=== PATIENT | female | born 1950 | race Caucasian/White ===

== ENCOUNTER 2016-03-09 08:40 | Emergency (ER) | payer MEDICARE ==
[~2016-03-09] VITALS: Ht 165.1 cm; Wt 68.9 kg
--- NOTE | 2016-03-09 09:35 | PHYS DOC ---
Past Medical History Past Medical History: Pneumonia Past Surgical History: Other Additional Past Surgical Histo: OVARIAN CYST Additional Information: 1 TO 1.5 PPD Alcohol Use: None Drug Use: None Adult General Chief Complaint Chief Complaint: DIARRHEA HPI HPI Patient is a 65 year old female who presents with complaint of diarrhea for the past 10 days. Patient states that she initially had trouble with a right ear infection and was prescribed eardrops which did not help. The patient states that she was placed on Cefdinir for treatment of her ear infection. Patient states that 2 days after that she started developing symptoms of diarrhea. Patient states that they have progressively worsened over the past few days. Patient states that she has associated nausea but no vomiting and has been having cramping abdominal pain before bowel movements. Patient does not have abdominal pain at rest currently. The patient states that she has had mild generalized weakness and has been having difficulty doing her job because of symptoms. Patient also complains of dysuria and vaginal itching but denies any discharge. Review of Systems Review of Systems Constitutional: Denies fever or chills [] Eyes: Denies change in visual acuity, redness, or eye pain [] HENT: Hearing loss in right ear, Denies nasal congestion or sore throat [] Respiratory: Denies cough or shortness of breath [] Cardiovascular: No additional information not addressed in HPI [] GI: Nausea, diarrhea, cramping abdominal pain, denies vomiting or bloody stools [] : Dysuria, vaginal itching [] Musculoskeletal: Denies back pain or joint pain [] Integument: Denies rash or skin lesions [] Neurologic: Denies headache, focal weakness or sensory changes [] Endocrine: Denies polyuria or polydipsia [] Allergies Allergies Allergies Coded Allergies Type Severity Reaction Last Updated Verified Penicillins Allergy Unknown 03/09/16 Yes Physical Exam Physical Exam Constitutional: Alert, afebrile, no acute distress. [] HENT: Normocephalic, atraumatic, right TM status post rupture with scab formation, left TM normal, oropharynx moist, no oral exudates, nose normal. [] Eyes: PERRLA, EOMI, conjunctiva normal, no discharge. [] Neck: Normal range of motion, no tenderness, supple, no stridor. [] Cardiovascular:Heart rate regular rhythm, no murmur [] Lungs & Thorax: Bilateral breath sounds clear to auscultation [] Abdomen: Bowel sounds normal, soft, no tenderness, no masses, no pulsatile masses. [] Skin: Warm, dry, no erythema, no rash. [] Back: No tenderness, no CVA tenderness. [] Extremities: No tenderness, no cyanosis, no clubbing, ROM intact, no edema. [] Neurologic: Alert and oriented X 3, normal motor function, normal sensory function, no focal deficits noted. [] Current Patient Data Vital Signs Vital Signs Date Time Temp Pulse Resp B/P Pulse Ox O2 Delivery O2 Flow Rate FiO2 03/09/16 11:23 56 19 150/86 97 Room Air 03/09/16 08:59 98.4 98.4 Lab Values Laboratory Tests Test 03/09/16 09:50 Urine Collection Type Void Urine Color Yellow Urine Clarity Clear Urine pH 6.5 Urine Specific [place] <=1.005 Urine Protein Negativemg/dL (NEG-TRACE) Urine Glucose (UA) Negativemg/dL (NEG) Urine Ketones (Stick) Negativemg/dL (NEG) Urine Blood Trace (NEG) Urine Nitrite Negative (NEG) Urine Bilirubin Negative (NEG) Urine Urobilinogen Dipstick 0.2mg/dL (0.2 mg/dL) Urine Leukocyte Esterase Trace (NEG) Urine RBC Occ/HPF (0-2) Urine WBC 1-4/HPF (0-4) Urine Squamous Epithelial Cells Few/LPF Urine Bacteria Few/HPF (0-FEW) EKG EKG Not performed [] Radiology/Procedures Radiology/Procedures Not performed [] Course & Med Decision Making Course & Med Decision Making Pertinent Labs and Imaging studies reviewed. (See chart for details) Patient's metabolic panel and UA were unremarkable. Due to history of recent antibiotic use, the patient may have infectious diarrhea due to loss of normal brianna. The patient will be started on Flagyl therapy as she was given Cipro by her primary doctor and stated that she did not want to take this for fear of possible tendinopathy and injury. Advised the patient follow-up with her primary doctor in the next 3 days and return to emergency department for any worsening symptoms. Patient voiced understanding and in agreement with treatment plan. Dragon Disclaimer Dragon Disclaimer This electronic medical record was generated, in whole or in part, using a voice recognition dictation system. Departure Departure Impression: Primary Impression: Diarrhea Disposition: HOME, SELF-CARE Condition: STABLE Referrals: NO PCP (PCP) Patient Instructions: Diarrhea Additional Instructions: You'll be started on Flagyl for treatment of your diarrhea. Follow-up with your primary doctor in 3 days. Return to the emergency department for any worsening symptoms. Scripts Metronidazole (Flagyl)500 Mg [id number] Mg PO TID #30 TAB Prov:SANTAAN LOMBARDO MD 03/09/16 Ondansetron (Zofran Odt)4 Mg Tab.rapdis4 Mg PO Q8HRS PRN NAUSEA/VOMITING #15 TAB Prov:SANTANA LOMBARDO MD 03/09/16 Problem Qualifiers Primary Impression: Diarrhea Diarrhea type: presumed infectious Qualified Code: A09 - Infectious gastroenteritis and colitis, unspecified SANTANA LOMBARDO MD Mar 09, 2016 09:35
[2016-03-09 10:44] LABS: BILIRUBIN,URINE NEGATIVE (NEG); GLUCOSE,URINE NEGATIVE (NEG); NITRITE,URINE NEGATIVE (NEG); PH,URINE 6.5; PROTEIN,URINE NEGATIVE (NEG-TRACE); UROBILINOGEN,URINE 0.2 mg/dL (0.2 mg/dL)
[2016-03-09 10:55] LABS: BACTERIA,URINE FEW /HPF (0-FEW); RBC,URINE OCC /HPF (0-2); SQUAMOUS EPITHELIAL CELL,UR FEW /LPF
[2016-03-09] MEDS ORDERED: ONDA4TAB10 PO (11:12)
[2016-03-09] MEDS ORDERED: METR500T PO (11:12)
[2016-03-09 11:23] VITALS: BP 150/86
== END 2016-03-09 11:39 | disposition home or self-care (01) ==
LOC: ER 08:40
DX: A09 Infectious gastroenteritis and colitis, unspecified (principal); L29.2 Pruritus vulvae; R30.0 Dysuria; F17.200 Nicotine dependence, unspecified, uncomplicated; Z88.0 Allergy status to penicillin; Z87.01 Personal history of pneumonia (recurrent)
CPT/HCPCS: 81001; 87086; 99284

== ENCOUNTER → 2017-04-02 | Outpatient (CLI) | payer MEDICARE | END | disposition home or self-care (01) | LOC: KCIC 09:13 | DX: A08.4 Viral intestinal infection, unspecified (principal) | CPT/HCPCS: 74018 ==

== ENCOUNTER → 2018-04-15 | Outpatient (CLI) | payer MEDICARE ==
[~2018-04-15] MED LIST: METR500T PO; ONDA4TAB10 PO
--- NOTE | 2018-04-15 10:40 | KCIC ---
EXAM: Dual energy x-ray absorptiometry (DEXA). HISTORY: Postmenopausal female presents for osteoporosis screening. COMPARISON: None. TECHNIQUE: Dual energy x-ray absorptiometry of the lumbar spine and left hip was performed. Calculation of bone mineral density based on standard deviations above or below the expected young adult normal value (T-score) was completed. FINDINGS: The average bone mineral density in the 1st through 4th lumbar vertebrae is 0.892 g/cmxcm, corresponding with a T-score of -1.4. The average total bone mineral density in the left hip is 0.650 g/cmxcm, corresponding with a T-score of -2.4. IMPRESSION: Osteopenia measured at the lumbar spine and left hip. Note: Definitions established by the World Health Organization: 1. Normal: T-score is -1.0 or above. 2. Osteopenia: T-score is between -1.0 and -2.5 . 3. Osteoporosis: T-score is -2.5 or below. Electronically signed by: Dasha Keyes MD (04/15/2018 10:37 AM) [facility]
--- NOTE | 2018-04-15 16:57 | KCIC ---
History: Screening. Bilateral digital CC and MLO views were obtained with mammography and tomosynthesis. Computer aided detection was utilized with iCAD Second Look 7.2-H. Previous: June 05, 2016. The breast tissue is heterogeneously dense, which could obscure detection of small masses (Level 3 density). There are no suspicious masses, suspicious microcalcifications or areas of architectural distortion. Small subcentimeter left outer breast intramammary lymph node on the CC tomosynthesis images. A few benign calcifications are present bilaterally. IMPRESSION: Negative mammogram. Patient information was entered into the [employer] reminder system with a target due date for the next screening mammogram. Routine annual screening mammogram in one year advised. BI-RADS Category 2: Benign. Your mammogram demonstrates that you have dense breast tissue, which could hide abnormalities, and if you have other risk factors for breast cancer that have been identified, you might benefit from supplemental screening tests that may be suggested by your ordering physician. Dense breast tissue, in and of itself, is a relatively common condition. This information is not provided to cause undue concern, but rather to raise your awareness and to promote discussion with your physician regarding the presence of other risk factors, in addition to dense breast tissue. A report of your mammography results will be sent to you and your physician. You should contact your physician if you have any questions or concerns regarding this report. A mammogram does not have 100% sensitivity and therefore a negative imaging study should not delay further work up of a suspicious abnormality. "Our facility is accredited by the [employer] Mammography Program." Electronically signed by: Boris Wu MD (04/15/2018 4:53 PM) [facility]
== END | disposition home or self-care (01) ==
LOC: KCIC DEXA 09:47
PROVIDERS: ATTEND Family Medicine
DX: Z12.31 Encounter for screening mammogram for malignant neoplasm of breast (principal); Z13.820 Encounter for screening for osteoporosis; M85.89 Other specified disorders of bone density and structure, multiple sites
CPT/HCPCS: 77063; 77067; 77080

== ENCOUNTER → 2019-12-18 | Outpatient (CLI) | payer MEDICARE ==
--- NOTE | 2019-12-18 14:54 | KCIC ---
EXAM: Lower extremity arterial Doppler sonogram with ankle-brachial indices (KANDY). HISTORY: Cold feet. TECHNIQUE: Doppler sonographic evaluation of the lower extremities was performed and pressure readings were assessed. FINDINGS: Right brachial pressure: 134 mmHg Left brachial pressure: 130 mmHg Resting: Right ankle pressure (dorsalis pedis artery): 127 mmHg Right ankle pressure (posterior tibial artery): 135 mmHg Right KANDY: 1.01 Left ankle pressure (dorsalis pedis artery): 130 mmHg Left ankle pressure (posterior tibial artery): 136 mmHg Left KANDY: 0.97 IMPRESSION: Normal bilateral ankle-brachial indices. Electronically signed by: Dasha Keyes MD (12/18/2019 2:50 PM) [id number]
--- NOTE | 2019-12-18 16:13 | KCIC ---
EXAM: Low dose CT lung cancer screening. HISTORY: Lung cancer screening. 37 pack year smoking history. TECHNIQUE: Computed tomographic images of the chest were obtained without contrast. *One or more of the following individualized dose reduction techniques were utilized for this examination: 1. Automated exposure control. 2. Adjustment of the mA and/or kV according to patient size. 3. Use of iterative reconstruction technique. COMPARISON: None. FINDINGS: The heart is normal in size. The aorta is normal in caliber. There is aortic and coronary artery atherosclerosis. There are calcified mediastinal and hilar granulomas. No pathologically enlarged lymph node is seen. There is no infiltrate, pleural effusion or pneumothorax. There is biapical pleural parenchymal scarring. There is a calcified granuloma with adjacent spiculated groundglass opacity within the superior segment of the right lower lobe. The imaging appearance favors pleural parenchymal scarring. The noncalcified groundglass spiculated lesion component measures approximately 7 mm. There are additional calcified granulomas within the medial right lower lobe. There is linear atelectasis or scarring within the lateral right lower lobe. There is a tiny 2 mm pleural-based nodule within the lateral right upper lobe likely due to adjacent pleural parenchymal scarring. There is a 1.3 cm cutaneous or subcutaneous nodule along the lateral right breast, the appearance of which favors a sebaceous cyst. There is no acute finding involving the upper abdomen. There is right adrenal gland thickening or a right adrenal adenoma measuring 1.7 cm. There are multiple splenic granulomas. There are degenerative changes throughout the spine. There is a bone island within T5. There is a minimal chronic superior endplate depression at T4 and T3. IMPRESSION: 1. No acute thoracic finding. 2. Calcified granulomas adjacent suspected lingular groundglass opacity within the superior segment of the right lower lobe. The main portion of the groundglass opacity measures approximately 7 mm and is likely due to scarring. Follow-up can be performed in 6 months to confirm stability in this high-risk patient. 3. Biapical pleural parenchymal scarring. 4. Right adrenal gland thickening or 1.7 cm benign right adrenal adenoma. Electronically signed by: Dasha Keyes MD (12/18/2019 4:10 PM) [id number]
== END ==
LOC: KCIC US 13:46
PROVIDERS: ATTEND Family Medicine
DX: Z12.2 Encounter for screening for malignant neoplasm of respiratory organs (principal); R20.9 Unspecified disturbances of skin sensation; R05 Cough; I25.10 Atherosclerotic heart disease of native coronary artery without angina pectoris; J98.4 Other disorders of lung; J84.10 Pulmonary fibrosis, unspecified; R91.1 Solitary pulmonary nodule; F17.210 Nicotine dependence, cigarettes, uncomplicated
CPT/HCPCS: 93922; G0297

== ENCOUNTER 2020-02-27 13:51 | Emergency (ER) | payer MEDICARE ==
[~2020-02-27] VITALS: Ht 165.1 cm; Wt 73.0 kg
[2020-02-27 14:39] LABS: BILIRUBIN,URINE NEGATIVE (NEG); CLARITY,URINE CLEAR; COLOR,URINE YELLOW; NITRITE,URINE NEGATIVE (NEG); PROTEIN,URINE NEGATIVE (NEG-TRACE); UROBILINOGEN,URINE 0.2 mg/dL (0.2 mg/dL)
[2020-02-27 14:50] VITALS: BP 159/72
[2020-02-27 14:50] LABS: RBC,URINE 0 /HPF (0-2); WBC,URINE OCC /HPF (0-4)
[2020-02-27 14:51] LABS: BACTERIA,URINE 0 /HPF (0-FEW)
[2020-02-27] MEDS ORDERED: METOCLOPRAMIDE HCL 10 MG/2 ML VIAL. IVP ONE (15:00)
[2020-02-27] MEDS ORDERED: IV NORMAL SALINE 1000ML BAG 1,000 ML IV SCH (15:00)
[2020-02-27] MEDS ORDERED: KETOROLAC 15 MG/ML VIAL. IVP ONE (15:00)
[2020-02-27] MEDS ORDERED: IV NORMAL SALINE 1000ML BAG 1,000 ML IV ONE (15:00)
--- NOTE | 2020-02-27 15:45 | RAD ---
PQRS Compliance Statement: One or more of the following individualized dose reduction techniques were utilized for this examinat ion: 1. Automated exposure control 2. Adjustment of the mA and/or kV according to patient size 3. Use of iterative reconstruction technique CT abdomen/pelvis without contrast 02/27/2020 2:55 PM INDICATION: Right flank pain. COMPARISON: None available TECHNIQUE: Multiple axial CT images of the abdomen and pelvis were obtained without intravenous contr ast. Coronal and sagittal reformats are provided. FINDINGS: There is subsegmental atelectasis of the right lung base. There is a 8 mm calcified granuloma at the medial right lung base. Heart size is within normal limits. Evaluation of solid abdominal viscera is limited by lack of intravenous contrast. There is an indeterminate hypoattenuating lesion in the infe rior right hepatic lobe measuring 9 mm. There is a cyst in the anterior inferior right hepatic lobe m easuring 14 mm. Calcifications within the spleen likely represent sequela prior granulomatous exposur e. Left adrenal gland is normal in appearance. There is a right adrenal nodule with attenuation measu ring -6 Hounsfield units suggestive of a lipid rich adrenal adenoma measuring 1.3 x 1.2 cm. Limited e valuation the pancreas. Gallbladder is present without adjacent inflammation. Abdominal aorta is norm al in course and caliber with moderate to advanced calcified atheromatous plaque. There are no pathol ogically enlarged lymph nodes in the abdomen and pelvis. There is no free fluid or free intraperitone al air. The kidneys are relatively symmetric in appearance. There is no suspicious renal mass within the limi tations of a noncontrast examination. There is no hydronephrosis. There are no calculi within the kid neys, ureters or urinary bladder. Urinary bladder is within normal limits given degree of distention. Uterus and adnexa are normal by CT. The appendix is not well evaluated on this examination due to lack of oral contrast. No pericecal inf lammatory changes are identified. Terminal ileum appears normal in caliber. No suspicious osseous abn ormality is identified. IMPRESSION: No evidence for obstructive uropathy. Appendix is not well evaluated due to the lack of oral contrast. There is persistent clinical concern , further evaluation with CT pelvis with oral contrast could be of benefit. There is a right adrenal lipid rich adenoma measuring 1.2 x 1.2 cm. Indeterminate 9 mm hypoattenuating lesion in the inferior right hepatic lobe. This may be further pau racterized with abdominal MRI with and without contrast. Electronically signed by: Gretchen Gordillo MD (02/27/2020 3:43 PM) [id number]
[2020-02-27 16:04] LABS: BASO # 0.1 x10^3/uL (0.0-0.2); BASO % 1 % (0-3); EOS # 0.1 x10^3/uL (0.0-0.7); EOS % 1 % (0-3); HEMATOCRIT 41.7 % (36.0-47.0); HEMOGLOBIN 14.3 g/dL (12.0-15.5); LYMPH # 2.2 x10^3/uL (1.0-4.8); LYMPH % 31 % (24-48); MEAN CORPUSCULAR HEMOGLOBIN 33 pg (25-35); MEAN CORPUSCULAR HGB CONC 34 g/dL (31-37); MEAN CORPUSCULAR VOLUME 96 fL (79-100); MONO # 0.5 x10^3/uL (0.0-1.1); MONO % 6 % (0-9); NEUT # 4.4 x10^3/uL (1.8-7.7); NEUT % 61 % (31-73); PLATELET COUNT 180 x10^3/uL (140-400); RED BLOOD COUNT 4.32 x10^6/uL (3.50-5.40); RED CELL DISTRIBUTION WIDTH 12.6 % (11.5-14.5); WHITE BLOOD COUNT 7.3 x10^3/uL (4.0-11.0)
[2020-02-27 16:17] LABS: CALCIUM 10.4 mg/dL (8.5-10.1); CREATININE 0.8 mg/dL (0.6-1.0); GFR 70.9; POTASSIUM 4.2 mmol/L (3.5-5.1)
[2020-02-27 16:23] LABS: ALBUMIN 3.9 g/dL (3.4-5.0); ALBUMIN/GLOBULIN RATIO 1.2 (1.0-1.7); TOTAL BILIRUBIN 0.4 mg/dL (0.2-1.0); TOTAL PROTEIN 7.2 g/dL (6.4-8.2)
--- NOTE | 2020-02-27 16:48 | PHYS DOC ---
Past Medical History Past Medical History: Pneumonia, Other Additional Past Medical Histor: C.diff Past Surgical History: Other Additional Past Surgical Histo: OVARIAN CYST/ Right salping/oopherectomy 1970 Smoking Status: Current Every Day Smoker Alcohol Use: None Drug Use: None General Adult EDM: Chief Complaint: FLANK PAIN HPI: HPI: Patient is a 69 year old female who presents via private vehicle for chief complaint of nausea and R sided flank pain. She reports that over the last month she has noticed increased belching and bloating after meals. She usually takes tums for this discomfort but they have stopped alleviating her symptoms in the last 1-2 weeks. Her discomfort has progressed to postprandial nausea without associated vomiting. She has associated pale colored stools. Last night she began to experience a 2/10 dull, nonradiating pain in the lower right flank that is only present when walking or standing but is relieved by position change to sitting or laying down. She saw her PCP on Sunday for related complaint of postprandial nausea and was started on pantoprazole, and given a referral to GI. She has a history of c.diff infection in 2018. She denies vomiting, diarrhea, constipation. She endorses urinary frequency and urgency, but denies dysuria, Review of Systems: Review of Systems: Constitutional: Denies fever or chills Eyes: vision changes, eye pain HENT: Denies nasal congestion or sore throat Respiratory: Denies cough or shortness of breath Cardiovascular: Denies chest pain or palpitations GI: Admits abdominal pain, nausea, pale colored stool, denies vomiting, blood in stool : Denies dysuria or hematuria. admits urinary urgency, frequency Musculoskeletal: Admits positional r lower back pain. admits joint pain associated with cold temperatures, recent dx raynauds Integument: Denies rash or skin lesions Neurologic: Denies headache, focal weakness or sensory changes Complete systems were reviewed and found to be within normal limits, except as documented in this note. Current Medications: Current Medications Medications (Trade) Dose Ordered Sig/Sabine Start Time Stop Time Status Last Admin Dose Admin Ketorolac Tromethamine (Toradol 15mg Vial) 10 mg 1X ONCE 02/27/20 15:00 02/27/20 15:01 DC Metoclopramide HCl (Reglan Vial) 10 mg 1X ONCE 02/27/20 15:00 02/27/20 15:01 DC Sodium Chloride 1,000 ml @ 1,000 mls/hr 1X ONCE 02/27/20 15:00 02/27/20 15:59 DC Allergies: Allergies: Allergies Coded Allergies Type Severity Reaction Last Updated Verified Penicillins Allergy Unknown 03/09/16 Yes Physical Exam: PE: Constitutional: Well developed, well nourished, no acute distress, non-toxic susan earance HENT: Normocephalic, atraumatic Eyes: PERRL, EOMI, conjunctiva normal, no discharge Neck: Normal range of motion, no tenderness, supple Lungs & Thorax: No respiratory distress, equal chest rise and fall Abdomen: Tender to deep palpation in RUQ and epigastric region. bowel sounds present, soft, nondistended Skin: Warm, dry, no erythema, no rash Back: Mild tenderness in R lower flank, no CVA tenderness Extremities: No tenderness, ROM intact, no edema, 2+ pedal pulse b/l Neurologic: Alert and oriented X 3, normal motor function, normal sensory function, no focal deficits noted Psychologic: Affect normal, judgment normal Current Patient Data: Labs: Laboratory Tests Test 02/27/20 14:30 02/27/20 15:50 Urine Collection Type Unknown Urine Color Yellow Urine Clarity Clear Urine pH 8.0 (<5.0-8.0) Urine Specific [place] 1.010 (1.000-1.030) Urine Protein Negative mg/dL (NEG-TRACE) Urine Glucose (UA) Negative mg/dL (NEG) Urine Ketones (Stick) Negative mg/dL (NEG) Urine Blood Negative (NEG) Urine Nitrite Negative (NEG) Urine Bilirubin Negative (NEG) Urine Urobilinogen Dipstick 0.2 mg/dL (0.2 mg/dL) Urine Leukocyte Esterase Small (NEG) Urine RBC 0 /HPF (0-2) Urine WBC Occ /HPF (0-4) Urine Squamous Epithelial Cells Mod /LPF Urine Bacteria 0 /HPF (0-FEW) White Blood Count 7.3 x10^3/uL (4.0-11.0) Red Blood Count 4.32 x10^6/uL (3.50-5.40) Hemoglobin 14.3 g/dL (12.0-15.5) Hematocrit 41.7 % (36.0-47.0) Mean Corpuscular Volume 96 fL (79-100) Mean Corpuscular Hemoglobin 33 pg (25-35) Mean Corpuscular Hemoglobin Concent 34 g/dL (31-37) Red Cell Distribution Width 12.6 % (11.5-14.5) Platelet Count 180 x10^3/uL (140-400) Neutrophils (%) (Auto) 61 % (31-73) Lymphocytes (%) (Auto) 31 % (24-48) Monocytes (%) (Auto) 6 % (0-9) Eosinophils (%) (Auto) 1 % (0-3) Basophils (%) (Auto) 1 % (0-3) Neutrophils # (Auto) 4.4 x10^3/uL (1.8-7.7) Lymphocytes # (Auto) 2.2 x10^3/uL (1.0-4.8) Monocytes # (Auto) 0.5 x10^3/uL (0.0-1.1) Eosinophils # (Auto) 0.1 x10^3/uL (0.0-0.7) Basophils # (Auto) 0.1 x10^3/uL (0.0-0.2) Laboratory Tests 02/27/20 15:50 Vital Signs: Vital Signs Date Time Temp Pulse Resp B/P (MAP) Pulse Ox O2 Delivery O2 Flow Rate FiO2 02/27/20 14:50 50 18 159/72 (101) 97 Room Air 02/27/20 14:13 98.2 98.2 EKG: EKG: [] Radiology/Procedures: Radiology/Procedures: PROCEDURE: CT ABDOMEN PELVIS WO CONTRAST PQRS Compliance Statement: One or more of the following individualized dose reduction techniques were utilized for this examination: 1. Automated exposure control 2. Adjustment of the mA and/or kV according to patient size 3. Use of iterative reconstruction technique CT abdomen/pelvis without contrast 02/27/2020 2:55 PM INDICATION: Right flank pain. COMPARISON: None available TECHNIQUE: Multiple axial CT images of the abdomen and pelvis were obtained without intravenous contrast. Coronal and sagittal reformats are provided. FINDINGS: There is subsegmental atelectasis of the right lung base. There is a 8 mm calcified granuloma at the medial right lung base. Heart size is within normal limits. Evaluation of solid abdominal viscera is limited by lack of intravenous contrast. There is an indeterminate hypoattenuating lesion in the inferior right hepatic lobe measuring 9 mm. There is a cyst in the anterior inferior right hepatic lobe measuring 14 mm. Calcifications within the spleen likely represent sequela prior granulomatous exposure. Left adrenal gland is normal in appearance. There is a right adrenal nodule with attenuation measuring -6 Hounsfield units suggestive of a lipid rich adrenal adenoma measuring 1.3 x 1.2 cm. Limited evaluation the pancreas. Gallbladder is present without adjacent inflammation. Abdominal aorta is normal in course and caliber with moderate to advanced calcified atheromatous plaque. There are no pathologically enlarged lymph nodes in the abdomen and pelvis. There is no free fluid or free intraperitoneal air. The kidneys are relatively symmetric in appearance. There is no suspicious renal mass within the limitations of a noncontrast examination. There is no hydronephrosis. There are no calculi within the kidneys, ureters or urinary bladder. Urinary bladder is within normal limits given degree of distention. Uterus and adnexa are normal by CT. The appendix is not well evaluated on this examination due to lack of oral contrast. No pericecal inflammatory changes are identified. Terminal ileum appears normal in caliber. No suspicious osseous abnormality is identified. IMPRESSION: No evidence for obstructive uropathy. Appendix is not well evaluated due to the lack of oral contrast. There is persistent clinical concern, further evaluation with CT pelvis with oral contrast could be of benefit. There is a right adrenal lipid rich adenoma measuring 1.2 x 1.2 cm. Indeterminate 9 mm hypoattenuating lesion in the inferior right hepatic lobe. This may be further characterized with abdominal MRI with and without contrast. Electronically signed by: Gretchen Gordillo MD (02/27/2020 3:43 PM) [id number] Course & Med Decision Making: Course & Med Decision Making Pertinent Labs and Imaging studies reviewed. (See chart for details) This 69 yof presents with complaint of postprandial nausea and R flank pain. Her flank pain is 2/10 positional and only present when walking, Physical exam negative for CVA tenderness. Urinalysis and labs ordered to evaluate for infection, electrolyte abnormalities. CT ordered due to concern for renal pathology reviewed as no evidence for obstructive uropathy. There is an incidental finding of right adrenal lipid rich adenoma measuring 1.2 x 1.2 cm and indeterminate 9 mm hypoattenuating lesion in the inferior right hepatic lobe. Recommend follow up with GI, referral already in place from PCP which she saw on Sunday02/24/2020 due to similar complaints. She has a history of C. diffiicile infection in 2018 but currently denies diarrhea. She was started on pantoprazole and referred to GI by her PCP. Metoclopramide and ketoralac given for symptomatic relief while in ED. Patient stable for discharge with outpatient follow-up with PCP. Discussed findings and plan with patient, who acknowledges understanding and agreement. Patience Disclaimer: Patience Disclaimer: This electronic medical record was generated, in whole or in part, using a voice recognition dictation system. Departure Departure Impression: Primary Impression: Abdominal pain Qualified Codes: R10.11 - Right upper quadrant pain Additional Impressions: Back pain Qualified Codes: M54.6 - Pain in thoracic spine Lung granuloma Liver lesion Disposition: HOME SELF CARE/HOMELESS Condition: STABLE Referrals: EMEKA RICH MD (PCP) Patient Instructions: Abdominal Pain (Nonspecific), Back Pain, Adult, [id number], Incidental Abnormal Radiological Finding Additional Instructions: Give copy of your CT results to your doctors for future re-evaluation. Scripts Ondansetron (ONDANSETRON ODT) 4 Mg Tab.rapdis 1 TAB PO PRN Q6-8HRS PRN for NAUSEA, #16 TAB Prov: NOEMY FIGUEROA DO 02/27/20 NOEMY FIGUEROA DO Feb 27, 2020 16:48
[2020-02-27] MEDS ORDERED: ONDA4TAB12 PO (17:11)
== END 2020-02-27 17:51 | disposition home or self-care (01) ==
LOC: ER 13:51
DX: R10.11 Right upper quadrant pain (principal); M54.6 Pain in thoracic spine; J84.10 Pulmonary fibrosis, unspecified; K76.9 Liver disease, unspecified; F17.200 Nicotine dependence, unspecified, uncomplicated; Z88.0 Allergy status to penicillin
CPT/HCPCS: 36415; 74176; 80053; 81001; 83605; 83690; 83735; 85025; 87086; 96361; 96374; 96375; 99284; J1885; J2765; J7030

== ENCOUNTER → 2021-03-07 | Outpatient (CLI) | payer MEDICARE ==
[~2021-03-07] MED LIST changes: +IOHEXOL 300 MG/ML 100ML VIAL. IV ONE; +ONDA4TAB12 PO
--- NOTE | 2021-03-07 10:22 | KCIC ---
CT abdomen with contrast dated 03/07/2021. COMPARISON: 02/27/2020. TECHNIQUE: Contiguous axial imaging the abdomen performed following the intravenous administration of 89 cc Omni paque 300. One or more of the following individualized dose reduction techniques were utilized for this examinat ion: 1. Automated exposure control 2. Adjustment of the mA and/or kV according to patient size 3. Use of iterative reconstruction technique CLINICAL INDICATION: Follow-up adrenal mass. FINDINGS: Mass of the right adrenal gland measuring 1.5 x 1.3 cm, stable from prior study as measured in the sa me planes. The left adrenal gland is unremarkable. Kidneys are symmetric in size and enhancement. No hydronephrosis. There are well-circumscribed low-density foci in the liver that are unchanged, likely small cysts. No biliary ductal dilatation. The gallbladder is unremarkable. Spleen is normal in size. Pancreas is unremarkable. Unopacified GI tract normal in caliber and contou r. No bowel wall thickening. No inflammatory changes in the mesentery. There are atherosclerotic loza ges of the abdominal aorta without evidence of aneurysm. No retroperitoneal or mesenteric lymphadenop athy. Limited images of the lung bases are clear. Heart size within normal limits. No pleural or pericardia l effusion. There is some linear scarring at the right lung base. Bone window show no acute finding. Mild multilevel spondylosis. IMPRESSION: 1. No significant interval change in left adrenal adenoma. 2. No new or acute findings. 3. Low-density foci in the liver, most consistent with cysts, unchanged. Electronically signed by: Bk Marcelino MD (03/07/2021 10:20 AM) [id number]
--- NOTE | 2021-03-07 10:29 | KCIC ---
EXAM: CT CHEST WITHOUT CONTRAST (LDCT LUNG CANCER SCREENING). HISTORY: Risk factors for pulmonary malignancy. Cigarette smoking. TECHNIQUE: CT of the chest was performed without intravenous contrast using a low-dose lung screening protocol. Findings analysis is based on ACR Lung-RADS v1.1. *One or more of the following individual ized dose reduction techniques were utilized for this examination: 1. Automated exposure control. 2. Adjustment of the mA and/or kV according to patient size. 3. Use of iterative reconstruction technique. COMPARISON: 12/18/2019. FINDINGS: The heart is normal in size. There is calcified atherosclerotic plaque involving the aorta, aortic arch great vessels and coronary arteries. The thyroid is prominent in size. No discrete nodul e is seen on this noncontrast exam. There are calcified mediastinal and right hilar and right lower l obe granulomas. There is a hyperdense nodule measuring approximately 1.6 cm within the subcutaneous t issues of the lateral right breast, stable and possibly due to a sebaceous cyst. There is also a stab le small nodule along the left chest wall at the 7:00 position of the left breast, possibly an intram ammary lymph node. There is a spiculated nodular opacity adjacent to clustered calcifications within the superior segmen t of the right lower lobe measuring approximately 10 mm. There is biapical pleural thickening due to scarring. There is a 3 mm pleural-based nodule within the lateral right upper lobe likely due to kunal cent scarring. There is partial visualization of a 1.4 cm hypodense lesion within the right hepatic l obe. There are multiple splenic granulomas. There is a 1.5 cm right adrenal nodule. There is no acute or suspicious osseous finding. There is a small bone island within the posterior aspect of T5. There are chronic mild superior endplate depressions at T3 and T4. IMPRESSION: 1. Stable 10 mm spiculated nodular opacity adjacent to clustered calcifications due to healed granulo matous disease within the superior segment of the right lower lobe, likely due to scarring. Lung RADS category 2:12 month follow up is recommended. 2. Biapical pleural parenchymal scarring. 3. Stable right adrenal nodule, the attenuation which favors an adenoma. 4. Stable 1.4 cm cyst within the liver. Please refer to the separate report for the abdomen CT on the same date for additional findings. Electronically signed by: Dasha Keyes MD (03/07/2021 10:27 AM) [id number]
== END ==
LOC: KCIC CT 08:54
PROVIDERS: ATTEND Family Medicine
DX: Z12.2 Encounter for screening for malignant neoplasm of respiratory organs (principal); I70.0 Atherosclerosis of aorta; J98.4 Other disorders of lung; F17.210 Nicotine dependence, cigarettes, uncomplicated; E27.8 Other specified disorders of adrenal gland; R16.0 Hepatomegaly, not elsewhere classified
CPT/HCPCS: 71271; 74160; 82565; Q9967

== ENCOUNTER 2021-05-22 08:26 | Emergency (ER) | payer MEDICARE ==
[~2021-05-22] VITALS: Ht 165.1 cm; Wt 144.0 kg
[~2021-05-22 08:26] MED LIST changes: -IOHEXOL 300 MG/ML 100ML VIAL. IV ONE
[2021-05-22 09:09] VITALS: BP 162/75
[2021-05-22] MEDS ORDERED: ACETAMINOPHEN 500 MG TABLET PO ONE (09:15)
[2021-05-22] MEDS ORDERED: PROMETHAZINE 12.5 MG TABLET. PO ONE (09:15)
[2021-05-22] MEDS ORDERED: PROM25TA10 PO (09:29)
[2021-05-22] MEDS ORDERED: HYDR25TA PO (09:29)
--- NOTE | 2021-05-22 09:29 | PHYS DOC ---
Past Medical History Past Medical History: Pneumonia, Other Additional Past Medical Histor: C.diff, INSOMNIA Past Surgical History: Other Additional Past Surgical Histo: OVARIAN CYST/ Right salping/oopherectomy 1970 Smoking Status: Current Every Day Smoker Alcohol Use: Occasionally Drug Use: None Adult General Chief Complaint Chief Complaint: Insomnia HPI HPI The patient is a 70-year-old female who is a smoker and has longstanding insomnia which has been present for many years. She presents for evaluation of insomnia. States that she stopped taking her Ambien (which she had been on for 4 months per her primary doctor) last week as it was giving her nightmares. Since then she has not been able to get any rest. She tried drinking alcohol to go to sleep but that did not help very much. She tried using NyQuil which was something that historically helped her to sleep without difficulty and states that over the past few days it has not helped much. She reports a gradual onset bilateral frontal headache, 4 out of 10 in severity, which she states is something she typically gets when she has not been able to sleep well. She reports some nausea which she states is another longstanding chronic concern for her and for which Phenergan has been helpful in the past. Patient denies associated fevers, vomiting, focal or lateralizing weakness, numbness or tingling, neck stiffness/pain/meningismus, vision changes, upper respiratory congestion/rhinorrhea, cough, sore throat, shortness of breath or chest pain of any kind, abdominal pain of any kind, flank pain, midline back pain, dysuria, hematuria, polyuria or oliguria, changes in bowel habits, pain or swelling to arms or legs. Vital signs are appropriate here aside from a degree of elevated blood pressure and mild bradycardia which appears to be baseline for this patient. Patient is in no acute distress, alert and oriented x4, and ambulatory into the emergency department with a narrow, steady gait. Review of Systems Review of Systems A 12 point review of systems was completed and was negative except where noted in HPI above. Current Medications Current Medications Current Medications Medications (Trade) Dose Ordered Sig/Sabine Start Time Stop Time Status Last Admin Dose Admin Promethazine HCl (Phenergan) 25 mg 1X ONCE 05/22/21 09:15 05/22/21 09:16 UNV Allergies Allergies Allergies Coded Allergies Type Severity Reaction Last Updated Verified Penicillins Allergy Intermediate 05/22/21 Yes eszopiclone Adverse Reaction Unknown rapid hear rate 05/22/21 Yes Physical Exam Physical Exam 70-year-old female appearing nontoxic and in no acute distress. Head is normocephalic and atraumatic. Patient ranges neck fully in all dimensions without discomfort or distress and there is no neck stiffness/rigidity/meningismus seen. Kernig's and Brudzinski's are negative. Neck is supple and nontender. Oropharynx is moist. Lungs are clear to auscultation at all stations. There is a normal S1 and S2 without rubs or gallops and capillary refill is appropriate, less than 2 seconds globally. Abdomen is soft, nontender and nondistended without pulsatile mass. Skin is warm and dry without cyanosis, clubbing or edema. Psychiatrically, the patient demonstrates appropriate mood and affect and is alert. Neurologically, cranial nerves II through XII are intact and there are no lateralizing deficits seen. Speech is normal. Language is normal. Coordination is normal. There is no dysmetria [id number] or [id number] bilaterally. Strength is 5 out of 5 at all joints of bilateral upper and lower extremities. Sensation is intact light touch in bilateral upper and lower extremities. Patient ambulates with a narrow, steady, non-ataxic gait here in the emergency department and is alert and oriented x4. Evaluation of the extremities reveals BUEs and BLEs neurovascularly intact distally with strength 5 out of 5, sensation intact light touch in all nerve distributions, radial, DP and PT pulses 2+ and equal bilaterally, capillary refill less than 2 seconds, hands and feet warm and well- perfused. No dependent peripheral edema distally. No calf tenderness or swelli ng bilaterally. Homans test is negative bilaterally. Current Patient Data Vital Signs Vital Signs Date Time Temp Pulse Resp B/P (MAP) Pulse Ox O2 Delivery O2 Flow Rate FiO2 05/22/21 08:31 99.0 55 16 174/90 (118) 96 Room Air 99.0 EKG EKG [] Radiology/Procedures Radiology/Procedures [] Course & Med Decision Making Course & Med Decision Making 70-year-old female here with insomnia, acute on chronic. Stopped taking her Ambien a week ago which is likely a reason for rebound insomnia. Secondarily also noting a mild bilateral frontal headache and some nausea which she states are chronic for her and associated with poor sleep. No red flags for either of these symptoms today. Treating with Tylenol and oral Phenergan. Discussed with patient that this is the emergency department and that here in the emergency department we are less sophisticated about sleep management strategies than primary care. Counseled her that I am happy to try a prescription of hydroxyzine for her but that beyond that she will need to follow-up closely with primary care. I have also counseled her that seeing a sleep medicine physician may be of assistance. Will attempt to provide referral information for sleep medicine. Patient will be provided a work note. She understands that if she feels worse instead of better or develops other new symptoms of concern that she should return to the emergency department immediately for reevaluation. All questions are answered. Dragon Disclaimer Dragon Disclaimer This electronic medical record was generated, in whole or in part, using a voice recognition dictation system. Departure Departure Impression: Primary Impression: Insomnia Additional Impressions: Nausea Other headache syndrome Disposition: HOME / SELF CARE / HOMELESS Condition: STABLE Referrals: EMEKA RICH MD (PCP) Patient Instructions: Insomnia Additional Instructions: Follow-up very closely with your primary care doctor in the office in the next 2 to 4 days for a reevaluation of your symptoms and discussion of next best steps in care. We are providing a prescription for hydroxyzine which is a medication you may take at bedtime to help get to sleep. Do not drink alcohol or take other sleep-promoting medications when taking hydroxyzine as the combination can make you too sleepy. For nausea you may take a Phenergan pill every 6 hours as needed. Return to the emergency department right away for worsening symptoms of any kind or with any other new symptoms of concern. Scripts Promethazine Hcl (PROMETHAZINE HCL) 25 Mg Tablet 1 TAB PO PRN Q6HRS PRN for NAUSEA, #20 TAB Prov: JO ANN BEDOYA MD 05/22/21 Hydroxyzine Hcl (HYDROXYZINE HCL) 25 Mg Tablet 1 TAB PO HS PRN for INSOMNIA, #30 TAB Prov: JO ANN BEDOYA MD 05/22/21 Problem Qualifiers Primary Impression: Insomnia Insomnia type: primary Qualified Codes: F51.01 - Primary insomnia JO ANN BEDOYA MD May 22, 2021 09:29
== END 2021-05-22 09:38 | disposition home or self-care (01) ==
LOC: ER 08:26
DX: F51.01 Primary insomnia (principal); G44.89 Other headache syndrome; R11.0 Nausea; F17.200 Nicotine dependence, unspecified, uncomplicated; Z88.0 Allergy status to penicillin; Z88.8 Allergy status to other drugs, medicaments and biological substances
CPT/HCPCS: 99283; Q0169